=== PATIENT | male | born 1970 | race Caucasian/White ===

== ENCOUNTER → 2018-02-27 07:18 | Outpatient (CLI) | payer BC, SELFPAY | PROVIDERS: Family Provider Preventive Medicine Occupational Medicine; PCP Preventive Medicine Occupational Medicine; Visit Provider Family Medicine | DX: R19.7 Diarrhea, unspecified (principal) | CPT/HCPCS: 87177; 87209; 87493; 87506 ==

== ENCOUNTER → 2020-09-18 11:41 | Outpatient (CLI) | payer BC, SELFPAY ==
--- NOTE | 2020-09-18 12:44 | NEURO ---
NCS and/or EMG Patient Report Ordering Doctor: Claire Guzman NP DATE OF SERVICE: 09/18/20 Indication: Intermittent right hand paresthesias over the last 9 months. 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 No neck or radicular pain. Findings: Nerve conduction studies were performed in the right upper extremity. The right median motor study recording the abductor pollicis brevis showed a normal amplitude, prolonged distal latency and normal conduction velocity. The right ulnar motor study recording the abductor digiti minimi showed a normal amplitude, normal distal latency and normal conduction velocity. No conduction block or focal slowing was present across the elbow. Right median-ulnar lumbrical / interosseous motor latencies showed a prolonged median latency compared to the ulnar. The right median sensory response recording digit two showed a reduced amplitude, prolonged latency and slowed conduction velocity. The right ulnar sensory response recording digit five showed a normal amplitude, latency and conduction velocity. The right radial sensory response recording over the extensor snuff box showed a normal amplitude, latency and conduction velocity. Needle EMG of the right upper extremity and cervical paraspinal muscles was performed. No denervation was seen in any muscle. The abductor pollicis brevis muscle demonstrated large, long motor units with slightly reduced recruitment. All other motor units were normal in morphology, activation and recruitment patterns. Impression: This is an abnormal study. 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 These findings are compatible withe the clinical diagnosis of carpal tunnel syndrome. In addition, there is no electrophysiologic evidence of cervical radiculopathy or other entrapment neuropathy in the right upper extremity. Dante Cutler D.O.
== END ==
PROVIDERS: PCP Nurse Practitioner Family; Referring Provider Nurse Practitioner Family; Visit Provider Nurse Practitioner Family
DX: M25.539 Pain in unspecified wrist (principal); G56.00 Carpal tunnel syndrome, unspecified upper limb; M79.643 Pain in unspecified hand
CPT/HCPCS: 95886; 95910